=== PATIENT | female | born 1995 | race Caucasian/White ===

== ENCOUNTER → 2018-06-09 17:46 | Outpatient (CLI) | payer OTHER, SELFPAY | PROVIDERS: PCP Family Medicine; Visit Provider Physician Assistant | DX: N89.8 Other specified noninflammatory disorders of vagina (principal) | CPT/HCPCS: 87210 ==

== ENCOUNTER → 2018-09-28 09:42 | Outpatient (CLI) | payer OTHER, SELFPAY ==
[2018-09-28 11:00] LABS: Cholesterol 157 mg/dL (140-199); Glucose 97 mg/dL (70-100)
== END ==
PROVIDERS: PCP Family Medicine; Visit Provider Family Medicine
DX: Z13.9 Encounter for screening, unspecified (principal)
CPT/HCPCS: 36415; 82465; 82947

== ENCOUNTER → 2018-09-29 09:21 | Outpatient (CLI) | payer OTHER, SELFPAY ==
[2018-09-29 10:24] LABS: Cholesterol 157 mg/dL (140-199); HDL Cholesterol 65 mg/dL (40-60); LDL Cholesterol Calculated 81 mg/dL (<100); Triglycerides 57 mg/dL (35-150)
== END ==
PROVIDERS: PCP Family Medicine; Visit Provider Registered Nurse
DX: Z13.9 Encounter for screening, unspecified (principal)
CPT/HCPCS: 80061

== ENCOUNTER 2020-12-07 12:32 | Observation (INO) | payer OTHER, SELFPAY ==
[2020-12-07 12:34] VITALS: BP 123/82; PULSE 79; RESP 14; TEMP 37; O2SAT 97; BMI 20.9
--- NOTE | 2020-12-07 12:55 | DI.RAD.S_ITS ---
PROCEDURE: XR FINGER RT MIN 2V INDICATIONS: left finger infection TECHNIQUE: AP hand, 2 views of the 2nd finger(s) acquired. COMPARISON: None. FINDINGS: Bones: No fractures or dislocations. No suspicious bony lesions. Soft tissues: No suspicious soft tissue calcifications. There is prominent soft tissue edema at the 2nd digit. IMPRESSION: 2nd digit soft tissue edema. No visualized acute fracture/dislocation or osseous lesions. However, if clinical concern and/or pain persist, short interval imaging followup in 7-10 days is recommended, as occult injury cannot be definitively excluded. Dictated by: Elysia Martini M.D. on 12/07/2020 at 13:15 Approved by: Elysia Martini M.D. on 12/07/2020 at 13:17
--- NOTE | 2020-12-07 12:55 | DI.RAD.S_ITS ---
PROCEDURE: XR FOREARM RT 2V INDICATIONS: possible left wrist/forearm infection TECHNIQUE: 2 views of the forearm were acquired. COMPARISON: None. FINDINGS: Bones: No fractures or dislocations. No suspicious bony lesions. Soft tissues: No suspicious soft tissue calcifications or masses. IMPRESSION: No visualized acute fracture or dislocation. However, if clinical concern and/or pain persist, short interval imaging followup in 7-10 days is recommended, as occult injury cannot be definitively excluded. Dictated by: Elysia Martini M.D. on 12/07/2020 at 13:14 Approved by: Elysia Martini M.D. on 12/07/2020 at 13:15
--- NOTE | 2020-12-07 13:03 | ED_ITS ---
HPI - Skin/Abscess/Foreign Bdy <HUA Johnson - Last Filed: 12/07/20 18:47> General Chief complaint: Skin/Abscess/Foreign Body Stated complaint: Infection in finger-progressed quickly Time Seen by Provider: 12/07/20 12:39 Source: patient Mode of arrival: Ambulatory Limitations: no limitations History of Present Illness HPI narrative: 25-year-old right handed female presents to the ED with right hand index finger pain that started yesterday after shutting her finger in the door. She reports that it became painful and swollen, she went to urgent care yesterday and received a prescription for Keflex. She reports that it continued to be painful overnight and the redness started streaking up her wrist and then up her arm. She is now unable to move her Proximal Interphylangeal joint. She reports that she bumped her finger on the door yesterday later and started Oozing from the knuckle a little bit after it was already swollen and painful. She reports that she is otherwise healthy, denies any kidney or heart problems. She has not heard of MRSA and doesn't think that she has had it before. She denies a fever, nausea, or vomiting. She reports that her pain is about a 6/10 and she has been taking Advil for this. She is able to passively move her finger but it does cause pain. Tetanus up to date: yes Related Data Home Medications Medication Instructions Recorded Confirmed levonorgestrel 14 mcg/24 hrs (3 1 device INTRAUTERINE DIRECTED 09/16/17 12/07/20 yrs) 13.5 mg intrauterine device each (Nina) drospirenone 3 mg-ethinyl 1 tab PO QAM 12/07/20 12/07/20 estradiol 0.02 mg tablet Previous Rx's Medication Instructions Recorded cephalexin 500 mg capsule 500 mg PO QID 10 Days #40 cap 12/06/20 desonide 0.05 % topical cream 1 applic TOPICAL BID #60 g 12/06/20 Allergies Allergy/AdvReac Type Severity Reaction Status Date / Time Sulfa (Sulfonamide AdvReac Mild INCREASED Verified 12/07/20 12:37 Antibiotics) SEVERITY OF SYMPTOM W/ CONJUNCTIVITIS Review of Systems <HUA Johnson - Last Filed: 12/07/20 18:47> Review of Systems Narrative: General: denies fever, chills Head/Neck: denies headache, neck pain Eyes: denies visual changes, eye pain Cardio: denies chest pain, palpitations Respiratory: denies shortness of breath, cough GI: denies abdominal pain, nausea, vomiting, or diarrhea : denies dysuria, hematuria MSK: denies joint pain, muscle weakness, complains of pain at her dorsom PIP on her right index finger Skin: denies rash, itching Neuro: denies numbness, tingling Patient History <HUA Johnson - Last Filed: 12/07/20 18:47> Surgical History History of third molar tooth extraction (2013) Social History household members: none Smoking Status: Former smoker alcohol intake: current substance use type: does not use Smoking Status: Former smoker alcohol intake frequency: holidays/special occasions only Substance Use Type: does not use Exam <HUA Johnson - Last Filed: 12/07/20 18:47> Narrative Exam Narrative: Independently reviewed vitals signs and nursing notes. General: Awake, alert, nontoxic, no cardiorespiratory distress Head/Neck: Atraumatic, neck full range of motion Eyes: EOMI, conjunctiva normal Nose: nares patent, no rhinorrhea Mouth/Throat: moist mucus membranes, posterior pharynx normal, no oral lesions Cardio: Regular rate and rhythm, no peripheral edema Respiratory: respirations unlabored without wheezing, stridor, or rales. No retractions. GI: Abdomen soft, nontender MSK: Moves all extremities, neurovascularly intact, None of [place] signs are present, in that, the affected finger is held in moderate flextion and is unable to move. The distal tip of the fingers is edematous, as is swelling of the PIP joint on The finger is not uniformly swollen over the affected tendon. There is no tenderness over the palpated tendon. There is no pain on passive extension of the affected finger. Skin: Normal capillary refill, no rash Neuro: Normal speech and cognition, normal gait Initial Vital Signs Initial Vital Signs: Vital Signs Temperature 98.6 F 12/07/20 12:34 Pulse Rate 79 10/01/21 12:34 Respiratory Rate 14 12/07/20 12:34 Blood Pressure 123/82 12/07/20 12:34 Pulse Oximetry 97 12/07/20 12:34 <Stefany Jimenez DO - Last Filed: 12/08/20 08:14> Initial Vital Signs Initial Vital Signs: Vital Signs Temperature 98.6 F 12/07/20 12:34 Pulse Rate 79 12/07/20 12:34 Respiratory Rate 14 12/07/20 12:34 Blood Pressure 123/82 12/07/20 12:34 Pulse Oximetry 97 12/07/20 12:34 Course <HUA Johnson - Last Filed: 12/07/20 18:47> Course Course Narrative: Dr. Knutson from Ortho was consulted for possible flexor tenosynovitis, he reports that he will be by to see this patient today. Decision to Admit Date: 01/07/21 Decision to Admit time: 13:41 Additional Information: Spoke with the hospitalist regarding admission after Dr. Knutson from orthopedics saw the patient. Dr. Knutson does not feel strongly that this is flexor tenosynovitis as the patient does not complain of pain on the palmar surface of her hand, he felt that this is appropriate for IV antibiotics and admission is to medicine via the hospitalist service. If this does not improve over the next couple hours with IV antibiotics on board he reports that a MRI would be important to obtain before MRI goes home today. Patient had an IV placed and is receiving vancomycin and ceftriaxone now. She is NPO status. Dr. Roque Hospitalist accepted pt for admission at 1500. Pt reports having claustrophobia and would like something for MRI. She received 0.5mg ativan IV and is going to MRI at 1515. test is negative. Orders Ordered: Acetaminophen (Acetaminophen 325 Mg Tablet) 650 mg PO Q6HR PRN PRN Reason: Fever/Mild Pain (1-3) Last Admin: 12/07/20 20:39 Dose: 650 mg Documented by: NATASHA Hydrocodone Bitart/Acetaminophen (Hydrocodone/Acet 5/325 Tablet) 1 tab PO Q4HR PRN PRN Reason: Pain, Moderate (4-6) Last Admin: 12/07/20 18:34 Dose: 1 tab Documented by: NATASHA Ceftriaxone Sodium 2,000 mg/ (Sodium Chloride) 100 mls @ 200 mls/hr IV Q24H SONIA Vancomycin HCl (Vancomycin) 1,000 mg in 200 mls @ 200 mls/hr IV Q6H SONIA Last Admin: 12/08/20 08:08 Dose: 200 mls/hr Documented by: Infusion: 12/08/20 03:32 Dose: 0 mls/hr Documented by: Admin: 12/08/20 02:20 Dose: 200 mls/hr Documented by: Infusion: 12/07/20 22:25 Dose: 0 mls/hr Documented by: Admin: 12/07/20 20:40 Dose: 200 mls/hr Documented by: NATASHA Ibuprofen (Ibuprofen 600 Mg Tablet) 600 mg PO Q6HR PRN PRN Reason: Fever/Mild Pain (1-3) Last Admin: 12/07/20 20:38 Dose: 600 mg Documented by: NATASHA Naloxone HCl (Naloxone 0.4 Mg/Ml Vial) 0.2 mg IV Q2MIN PRN PRN Reason: Opiate Reversal Ondansetron HCl (Ondansetron 4 Mg/2 Ml Inj) 4 mg IV Q8HR PRN PRN Reason: Nausea And Vomiting Oxycodone HCl (Oxycodone Ir 10 Mg Tablet) 10 mg PO Q4HR PRN PRN Reason: Pain, Severe (7-10) Last Admin: 12/08/20 08:08 Dose: 10 mg Documented by: Admin: 12/08/20 02:20 Dose: 10 mg Documented by: Admin: 12/07/20 22:24 Dose: 10 mg Documented by: NATASHA Discontinued Medications Ceftriaxone Sodium 2,000 mg/ (Sodium Chloride) 100 mls @ 200 mls/hr IV NOW ONE Stop: 12/07/20 12:50 Last Infusion: 12/07/20 14:09 Dose: 0 mls/hr Documented by: Admin: 12/07/20 13:32 Dose: 200 mls/hr Documented by: EB Vancomycin HCl (Vancomycin) 1,250 mg in 250 mls @ 187.5 mls/hr IV NOW ONE Stop: 12/07/20 15:34 Last Infusion: 12/07/20 16:37 Dose: 187.5 mls/hr Documented by: Admin: 12/07/20 14:14 Dose: 187.5 mls/hr Documented by: EB Lorazepam (Lorazepam 2 Mg/Ml Inj) 0.5 mg IV NOW ONE Stop: 12/07/20 15:06 Last Admin: 12/07/20 15:08 Dose: 0.5 mg Documented by: EB Oxycodone HCl (Oxycodone 5 Mg/5 Ml Oral Solution) 10 mg PO Q4HR PRN PRN Reason: Pain, Moderate (4-6) Oxycodone/Acetaminophen (Oxycodone/Acetaminophen 5/325 Tablet) 1 tab PO NOW ONE Stop: 12/07/20 12:50 Last Admin: 12/07/20 13:32 Dose: 1 tab Documented by: EB Vancomycin HCl (Vancomycin Per Pharmacy) 1 request MISC NOW ONE Stop: 12/07/20 12:57 Last Admin: 12/07/20 13:33 Dose: Not Given Documented by: EB Vancomycin HCl (Vancomycin Trough) 1 request MISC 0730 ONE Stop: 12/08/20 07:31 Vital Signs Vital signs: Vital Signs - 8 hr 12/07/20 12:34 12/07/20 13:35 12/07/20 13:36 Temperature 98.6 F Pulse Rate 79 61 64 Respiratory Rate 14 17 Blood Pressure 123/82 124/91 H Pulse Oximetry 97 100 100 12/07/20 14:00 12/07/20 14:30 Temperature Pulse Rate 60 63 Respiratory Rate 18 Blood Pressure 115/74 115/74 Pulse Oximetry 100 100 <Stefany Jimenez, - Last Filed: 12/08/20 08:14> Orders Ordered: Acetaminophen (Acetaminophen 325 Mg Tablet) 650 mg PO Q6HR PRN PRN Reason: Fever/Mild Pain (1-3) Last Admin: 12/07/20 20:39 Dose: 650 mg Documented by: NATASHA Hydrocodone Bitart/Acetaminophen (Hydrocodone/Acet 5/325 Tablet) 1 tab PO Q4HR PRN PRN Reason: Pain, Moderate (4-6) Last Admin: 12/07/20 18:34 Dose: 1 tab Documented by: NATASHA Ceftriaxone Sodium 2,000 mg/ (Sodium Chloride) 100 mls @ 200 mls/hr IV Q24H [facility] Vancomycin HCl (Vancomycin) 1,000 mg in 200 mls @ 200 mls/hr IV Q6H SONIA Last Admin: 12/08/20 08:08 Dose: 200 mls/hr Documented by: Infusion: 12/08/20 03:32 Dose: 0 mls/hr Documented by: Admin: 12/08/20 02:20 Dose: 200 mls/hr Documented by: Infusion: 12/07/20 22:25 Dose: 0 mls/hr Documented by: Admin: 12/07/20 20:40 Dose: 200 mls/hr Documented by: NATASHA Ibuprofen (Ibuprofen 600 Mg Tablet) 600 mg PO Q6HR PRN PRN Reason: Fever/Mild Pain (1-3) Last Admin: 12/07/20 20:38 Dose: 600 mg Documented by: NATASHA Naloxone HCl (Naloxone 0.4 Mg/Ml Vial) 0.2 mg IV Q2MIN PRN PRN Reason: Opiate Reversal Ondansetron HCl (Ondansetron 4 Mg/2 Ml Inj) 4 mg IV Q8HR PRN PRN Reason: Nausea And Vomiting Oxycodone HCl (Oxycodone Ir 10 Mg Tablet) 10 mg PO Q4HR PRN PRN Reason: Pain, Severe (7-10) Last Admin: 12/08/20 08:08 Dose: 10 mg Documented by: Admin: 12/08/20 02:20 Dose: 10 mg Documented by: Admin: 12/07/20 22:24 Dose: 10 mg Documented by: NATASHA Discontinued Medications Ceftriaxone Sodium 2,000 mg/ (Sodium Chloride) 100 mls @ 200 mls/hr IV NOW ONE Stop: 12/07/20 12:50 Last Infusion: 12/07/20 14:09 Dose: 0 mls/hr Documented by: Admin: 12/07/20 13:32 Dose: 200 mls/hr Documented by: EB Vancomycin HCl (Vancomycin) 1,250 mg in 250 mls @ 187.5 mls/hr IV NOW ONE Stop: 12/07/20 15:34 Last Infusion: 12/07/20 16:37 Dose: 187.5 mls/hr Documented by: Admin: 12/07/20 14:14 Dose: 187.5 mls/hr Documented by: EB Lorazepam (Lorazepam 2 Mg/Ml Inj) 0.5 mg IV NOW ONE Stop: 12/07/20 15:06 Last Admin: 12/07/20 15:08 Dose: 0.5 mg Documented by: EB Oxycodone HCl (Oxycodone 5 Mg/5 Ml Oral Solution) 10 mg PO Q4HR PRN PRN Reason: Pain, Moderate (4-6) Oxycodone/Acetaminophen (Oxycodone/Acetaminophen 5/325 Tablet) 1 tab PO NOW ONE Stop: 12/07/20 12:50 Last Admin: 12/07/20 13:32 Dose: 1 tab Documented by: EB Vancomycin HCl (Vancomycin Per Pharmacy) 1 request MISC NOW ONE Stop: 12/07/20 12:57 Last Admin: 12/07/20 13:33 Dose: Not Given Documented by: EB Vancomycin HCl (Vancomycin Trough) 1 request MISC 0730 ONE Stop: 12/08/20 07:31 Vital Signs Vital signs: Vital Signs - 8 hr 12/07/20 12:34 12/07/20 13:35 12/07/20 13:36 Temperature 98.6 F Pulse Rate 79 61 64 Respiratory Rate 14 17 Blood Pressure 123/82 124/91 H Pulse Oximetry 97 100 100 12/07/20 14:00 12/07/20 14:30 Temperature Pulse Rate 60 63 Respiratory Rate 18 Blood Pressure 115/74 115/74 Pulse Oximetry 100 100 MDM - Skin/Abscess/Foreign Bdy <Lelo Mike [facility] - Last Filed: 12/07/20 18:47> Lab Data Result diagrams: 12/08/20 06:02 12/07/20 13:15 Labs: Lab Results 12/07/20 12/07/20 12/07/20 Range/Units 13:15 13:15 13:17 WBC 9.8 (4.5-11.0) X10^3/uL RBC 4.69 (4.0-5.2) X10^6/uL Hgb 13.0 (12.0-16.0) g/dL Hct 39.2 (36-46) % MCV 83.5 (80-100) fL MCH 27.7 (26-34) PG MCHC 33.1 (30-36) % RDW 14.7 (11.6-14.8) % Plt Count 288 (150-400) X10^3/uL Neut % (Auto) 66.8 (50-75) % Lymph % (Auto) 23.3 L (25-40) % [place] % (Auto) 8.5 (3-14) % Eos % (Auto) 0.9 L (2-4) % Baso % (Auto) 0.5 (0-2) % Neut # (Auto) 6600 (0071-7869) /uL Lymph # (Auto) 2300 (4600-3459) /uL [place] # (Auto) 800 (0-900) /uL Eos # (Auto) 100 (0-450) /uL Baso # (Auto) 0 (0-100) /uL ESR 7 (0-20) MM/HR Sodium 140 (137-145) mmol/L Potassium 3.5 (3.4-5.1) mmol/L Chloride 105 (98-107) mmol/L Carbon Dioxide 28 (22-32) mmol/L BUN 7 (7-17) mg/dL Creatinine 0.63 (0.52-1.04) mg/dL Estimated GFR > 60.0 (>60) mL/min BUN/Creatinine Ratio 11.1 (6-22) Glucose 87 (70-100) mg/dL Calcium 9.4 (8.4-10.2) mg/dL Total Bilirubin 0.3 (0.2-1.3) mg/dL AST 23 (14-36) IU/L ALT 21 (<35) IU/L Alkaline Phosphatase 61 (38-126) U/L Total Protein 7.2 (6.3-8.2) g/dL Albumin 4.5 (3.5-5.0) g/dL Globulin 2.7 (1.7-4.1) g/dL Albumin/Globulin Ratio 1.7 (1.0-2.8) HCG, Quant < 2.4 mIU/mL SARS-CoV-2 (PCR) (Negative) 12/07/20 Range/Units 13:44 WBC (4.5-11.0) X10^3/uL RBC (4.0-5.2) X10^6/uL Hgb (12.0-16.0) g/dL Hct (36-46) % MCV (80-100) fL MCH (26-34) PG MCHC (30-36) % RDW (11.6-14.8) % Plt Count (150-400) X10^3/uL Neut % (Auto) (50-75) % Lymph % (Auto) (25-40) % [place] % (Auto) (3-14) % Eos % (Auto) (2-4) % Baso % (Auto) (0-2) % Neut # (Auto) (9274-4491) /uL Lymph # (Auto) (5902-1183) /uL [place] # (Auto) (0-900) /uL Eos # (Auto) (0-450) /uL Baso # (Auto) (0-100) /uL ESR (0-20) MM/HR Sodium (137-145) mmol/L Potassium (3.4-5.1) mmol/L Chloride (98-107) mmol/L Carbon Dioxide (22-32) mmol/L BUN (7-17) mg/dL Creatinine (0.52-1.04) mg/dL Estimated GFR (>60) mL/min BUN/Creatinine Ratio (6-22) Glucose (70-100) mg/dL Calcium (8.4-10.2) mg/dL Total Bilirubin (0.2-1.3) mg/dL AST (14-36) IU/L ALT (<35) IU/L Alkaline Phosphatase (38-126) U/L Total Protein (6.3-8.2) g/dL Albumin (3.5-5.0) g/dL Globulin (1.7-4.1) g/dL Albumin/Globulin Ratio (1.0-2.8) HCG, Quant mIU/mL SARS-CoV-2 (PCR) Negative (Negative) Imaging Data Extremity x-ray #1: Radiologist's Impression: PROCEDURE:? XR FINGER RT MIN 2V ? INDICATIONS:? left finger infection ? TECHNIQUE:? AP hand, 2 views of the 2nd finger(s) acquired.? ? COMPARISON:? None. ? FINDINGS:? ? Bones:? No fractures or dislocations.? No suspicious bony lesions.? ? Soft tissues:? No suspicious soft tissue calcifications.? There is prominent soft tissue edema at the 2nd digit. ? IMPRESSION:? 2nd digit soft tissue edema. No visualized acute fracture/dis location or osseous lesions. However, if clinical concern and/or pain persist, short interval imaging followup in 7-10 days is recommended, as occult injury cannot be definitively excluded. ? ? Dictated by: Elysia Martini M.D. on 12/07/2020 at 13:15 ? ? Approved by: Elysia Martini M.D. on 12/07/2020 at 13:17 ? Extremity x-ray #2: Radiologist's Impression: PROCEDURE:? XR FOREARM RT 2V ? INDICATIONS:? possible left wrist/forearm infection ? TECHNIQUE:? 2 views of the forearm were acquired.? ? COMPARISON:? None. ? FINDINGS:? ? Bones:? No fractures or dislocations.? No suspicious bony lesions.? ? Soft tissues:? No suspicious soft tissue calcifications or masses.? ? ? IMPRESSION:? No visualized acute fracture or dislocation. However, if clinical concern and/or pain persist, short interval imaging followup in 7-10 days is recommend ed, as occult injury cannot be definitively excluded. ? ? ? Dictated by: Elysia Martini M.D. on 12/07/2020 at 13:14 ? ? Approved by: Elysia Martini M.D. on 12/07/2020 at 13:15 ? MRI Hand: Radiologist's Impression: PROCEDURE:? MR HAND RT WO/W CON ? INDICATIONS:? rt index finger cellulitis c/f abcess, necrotizing fasc ? TECHNIQUE:? Noncontrast coronal T1 spin echo and STIR, sagittal T1 spin echo with fat saturation and STIR, axial T1 spin echo and T2 fast spin echo with fat saturation.? After the administration of contrast, axial/sagittal/coronal T1 spin echo with fat saturation through the right hand and 2nd finger.? ? COMPARISON:? None. ? FINDINGS:? Image quality:? Excellent.? ? Bones:? The visualized bone marrow demonstrates normal signal on all sequences.? The overlying cortex appears intact.? No abnormal intraosseous enhancement.? ? Soft tissues:? Diffuse soft tissue swelling and edema surrounding 2nd digit particularly over volar aspect of 2nd distal phalanx is seen and show heterogeneous contrast enhancement.? No discrete drainable fluid collection is noted.? No soft tissue masses are visualized.? The scanned muscles demonstrate normal overall bulk and internal signal.? Extensor and flexor tendons are grossly intact.? ? IMPRESSION:? 1. Extensive soft tissue edema and swelling surrounding 2nd digit consistent with extensive cellulitis.? No discrete drainable abscess collection.? No soft tissue mass or fluid collection. 2. No evidence of osteomyelitis.? No fracture or dislocation. 3. Extensor and flexor tendons of 2nd digit are grossly intact.? ? ? Dictated by: Iain Brooks M.D. on 12/07/2020 at 16:11 ? ? Approved by: Iain Brooks M.D. on 12/07/2020 at 16:18 ? MDM Narrative Medical decision making narrative: 25-year-old right handed female presents to the ED with right hand index finger pain that started yesterday after shutting her finger in the door. She was seen at urgent care yesterday and prescribed Keflex for finger cellulitis. The redness progressed up her finger into her wrist towards her elbow. Her finger and forearm x-rays were negative for bony abnormalities, there was edema surrounding her 2nd finger on her left hand at the PIP joint without any air. Patient has sensitivity to light touch around her proximal PIP of 2nd digit, it is erythematous, with lymphanginitic spread visible, no fluid pockets or fluctuance, no obvious abscess. Low concern for osteomyelitis. Patient does not have any immune compromise, pain out of proportion, for rapid progression similar to necrotizing fasciitis. None of [place] signs are present, in that, the affected finger is held in slight flextion. The finger is not uniformly swollen over the affected tendon. There is no tenderness over the palpated tendon. Her pain is not on the palmar surface, it is more on the dorsum of her finger. There is pain on passive extension of the affected finger. Ceftriaxone and vancomycin IV and a consult to Ortho was made with concern for flexor tenosynovitis versus cellulitis versus compartment syndrome. A right hand MRI was ordered and is pending at this time. Hospitalist Dr. roque was consulted for admission to the hospital. Initial ddx to include but not limited to flexor tenosynovitis, compartment syndrome distal of index finger on right hand, and necrotizing faciitis. Dispo: Admission to hospitalist service with orthopedic consult for possible surgery Pending her MRI and course on IV antibiotics. She was admitted before her MRI results were available, the radiology read had no evidence of osteomyelitis, no fracture dislocation extensor and flexor tendons of 2nd digit are grossly intact, and she did have extensive soft tissue edema and swelling surrounding 2nd digit consisted with extensive cellulitis without drainable abscess collection, no soft tissue mass or fluid collection. <Stefany Jimenez, DO - Last Filed: 12/08/20 08:14> Lab Data Labs: Lab Results 12/07/20 12/07/20 12/07/20 Range/Units 13:15 13:15 13:17 WBC 9.8 (4.5-11.0) X10^3/uL RBC 4.69 (4.0-5.2) X10^6/uL Hgb 13.0 (12.0-16.0) g/dL Hct 39.2 (36-46) % MCV 83.5 (80-100) fL MCH 27.7 (26-34) PG MCHC 33.1 (30-36) % RDW 14.7 (11.6-14.8) % Plt Count 288 (150-400) X10^3/uL Neut % (Auto) 66.8 (50-75) % Lymph % (Auto) 23.3 L (25-40) % [place] % (Auto) 8.5 (3-14) % Eos % (Auto) 0.9 L (2-4) % Baso % (Auto) 0.5 (0-2) % Neut # (Auto) 6600 (7132-2461) /uL Lymph # (Auto) 2300 (2206-2385) /uL [place] # (Auto) 800 (0-900) /uL Eos # (Auto) 100 (0-450) /uL Baso # (Auto) 0 (0-100) /uL ESR 7 (0-20) MM/HR Sodium 140 (137-145) mmol/L Potassium 3.5 (3.4-5.1) mmol/L Chloride 105 (98-107) mmol/L Carbon Dioxide 28 (22-32) mmol/L BUN 7 (7-17) mg/dL Creatinine 0.63 (0.52-1.04) mg/dL Estimated GFR > 60.0 (>60) mL/min BUN/Creatinine Ratio 11.1 (6-22) Glucose 87 (70-100) mg/dL Calcium 9.4 (8.4-10.2) mg/dL Total Bilirubin 0.3 (0.2-1.3) mg/dL AST 23 (14-36) IU/L ALT 21 (<35) IU/L Alkaline Phosphatase 61 (38-126) U/L Total Protein 7.2 (6.3-8.2) g/dL Albumin 4.5 (3.5-5.0) g/dL Globulin 2.7 (1.7-4.1) g/dL Albumin/Globulin Ratio 1.7 (1.0-2.8) HCG, Quant < 2.4 mIU/mL SARS-CoV-2 (PCR) (Negative) 12/07/20 Range/Units 13:44 WBC (4.5-11.0) X10^3/uL RBC (4.0-5.2) X10^6/uL Hgb (12.0-16.0) g/dL Hct (36-46) % MCV (80-100) fL MCH (26-34) PG MCHC (30-36) % RDW (11.6-14.8) % Plt Count (150-400) X10^3/uL Neut % (Auto) (50-75) % Lymph % (Auto) (25-40) % [place] % (Auto) (3-14) % Eos % (Auto) (2-4) % Baso % (Auto) (0-2) % Neut # (Auto) (3783-2262) /uL Lymph # (Auto) (0867-2882) /uL [place] # (Auto) (0-900) /uL Eos # (Auto) (0-450) /uL Baso # (Auto) (0-100) /uL ESR (0-20) MM/HR Sodium (137-145) mmol/L Potassium (3.4-5.1) mmol/L Chloride (98-107) mmol/L Carbon Dioxide (22-32) mmol/L BUN (7-17) mg/dL Creatinine (0.52-1.04) mg/dL Estimated GFR (>60) mL/min BUN/Creatinine Ratio (6-22) Glucose (70-100) mg/dL Calcium (8.4-10.2) mg/dL Total Bilirubin (0.2-1.3) mg/dL AST (14-36) IU/L ALT (<35) IU/L Alkaline Phosphatase (38-126) U/L Total Protein (6.3-8.2) g/dL Albumin (3.5-5.0) g/dL Globulin (1.7-4.1) g/dL Albumin/Globulin Ratio (1.0-2.8) HCG, Quant mIU/mL SARS-CoV-2 (PCR) Negative (Negative) Discharge Plan Departure Patient Disposition: Admitted as Observation Clinical Impression: Cellulitis of finger of right hand Admit Date/Time: 12/07/20 15:06 Admit Provider: Samantha Roque <Stefany Jimenez DO - Last Filed: 12/08/20 08:14> Cosign ED Attending Kyrieature Attestation: I was immediately available in the department for consultation. Documentation has been reviewed. I agree with assessment and plan.
[2020-12-07 13:25] LABS: Add Manual Diff / Slide Review NO; Basophils Absolute Auto 0 /uL (0-100); Basophils Percent Auto 0.5 % (0-2); Eosinophils Absolute Auto 100 /uL (0-450); Eosinophils Percent Auto 0.9 % (2-4); Hematocrit 39.2 % (36-46); Lymphocytes Absolute Auto 2300 /uL (1100-4500); Lymphocytes Percent Auto 23.3 % (25-40); Mean Corpuscular HGB Conc 33.1 % (30-36); Mean Corpuscular Hemoglobin 27.7 PG (26-34); Mean Corpuscular Volume 83.5 fL (80-100); Monocytes Absolute Auto 800 /uL (0-900); Monocytes Percent Auto 8.5 % (3-14); Neutrophils Absolute Auto 6600 /uL (1500-7000); Neutrophils Percent Auto 66.8 % (50-75); Platelet Count 288 X10^3/uL (150-400); Red Blood Cell Count 4.69 X10^6/uL (4.0-5.2); Red Cell Distribution Width 14.7 % (11.6-14.8); White Blood Cell Count 9.8 X10^3/uL (4.5-11.0)
[2020-12-07] MEDS: OXYCODONE/ACETAMINOPHEN 5/325 TABLET 1 TAB PO (13:32)
[2020-12-07] MEDS: cefTRIAXone 2,000 MG in SODIUM CHLORIDE 0.9% 100 ML 200 ML IV (13:32)
[2020-12-07 13:35] VITALS: PULSE 61; O2SAT 100
[2020-12-07 13:36] VITALS: BP 124/91; PULSE 64; RESP 17; O2SAT 100
[2020-12-07 13:43] LABS: Alanine Aminotransferase 21 IU/L (<35); Albumin 4.5 g/dL (3.5-5.0); Albumin Globulin Ratio 1.7 (1.0-2.8); Alkaline Phosphatase 61 U/L (38-126); Aspartate Aminotransferase 23 IU/L (14-36); BUN Creatinine Ratio 11.1 (6-22); Bilirubin Total 0.3 mg/dL (0.2-1.3); Blood Urea Nitrogen 7 mg/dL (7-17); Calcium 9.4 mg/dL (8.4-10.2); Carbon Dioxide 28 mmol/L (22-32); Chloride 105 mmol/L (98-107); Estimated Glomerular Filt Rate > 60.0 mL/min (>60); Globulin 2.7 g/dL (1.7-4.1); Glucose 87 mg/dL (70-100); HEMOLYSIS < 15 (0-50); Potassium 3.5 mmol/L (3.4-5.1); Sodium 140 mmol/L (137-145); Total Protein 7.2 g/dL (6.3-8.2)
[2020-12-07 13:53] LABS: Erythrocyte Sedimentation Rate 7 MM/HR (0-20)
[2020-12-07 14:00] VITALS: BP 115/74; PULSE 60; RESP 18; O2SAT 100
--- NOTE | 2020-12-07 14:09 | DI.MRI.S_ITS ---
PROCEDURE: MR HAND RT WO/W CON INDICATIONS: rt index finger cellulitis c/f abcess, necrotizing fasc TECHNIQUE: Noncontrast coronal T1 spin echo and STIR, sagittal T1 spin echo with fat saturation and STIR, axial T1 spin echo and T2 fast spin echo with fat saturation. After the administration of contrast, axial/sagittal/coronal T1 spin echo with fat saturation through the right hand and 2nd finger. COMPARISON: None. FINDINGS: Image quality: Excellent. Bones: The visualized bone marrow demonstrates normal signal on all sequences. The overlying cortex appears intact. No abnormal intraosseous enhancement. Soft tissues: Diffuse soft tissue swelling and edema surrounding 2nd digit particularly over volar aspect of 2nd distal phalanx is seen and show heterogeneous contrast enhancement. No discrete drainable fluid collection is noted. No soft tissue masses are visualized. The scanned muscles demonstrate normal overall bulk and internal signal. Extensor and flexor tendons are grossly intact. IMPRESSION: 1. Extensive soft tissue edema and swelling surrounding 2nd digit consistent with extensive cellulitis. No discrete drainable abscess collection. No soft tissue mass or fluid collection. 2. No evidence of osteomyelitis. No fracture or dislocation. 3. Extensor and flexor tendons of 2nd digit are grossly intact. Dictated by: Iain Brooks M.D. on 12/07/2020 at 16:11 Approved by: Iain Brooks M.D. on 12/07/2020 at 16:18
[2020-12-07] MEDS: VANCOMYCIN 1,250 MG/250 ML PIGGYBACK 187.5 MG IV (14:14)
[2020-12-07 14:30] VITALS: BP 115/74; PULSE 63; O2SAT 100
[2020-12-07 14:47] LABS: HCG Quantitative /Beta subunit < 2.4 mIU/mL
[2020-12-07] MEDS: LORazepam 2 MG/ML INJ 0.5 MG IV (15:08)
[2020-12-07 15:43] LABS: COVID19 - ADMIT (NP swab/PCR) Negative (Negative)
--- NOTE | 2020-12-07 16:50 | PM.CN ---
History of Present Illness Consult details Chief complaint: Infection in finger-progressed quickly Narrative: Ms. Sue is a 25 yo F with acute onset finger swelling and pain since yesterday. Her finger is becoming more painful with range of motion and she presented to ED for evaluation. Ortho service was consulted. I examined and evaluated the patient in the ED. Meds Home Medications and Allergies Home Medications Medication Instructions Recorded Confirmed Type levonorgestrel 14 mcg/24 hrs (3 INTRAUTERINE each 09/16/17 12/06/20 History yrs) 13.5 mg intrauterine device (Nina) cephalexin 500 mg capsule 500 mg PO QID 10 Days #40 cap 12/06/20 12/07/20 Rx desonide 0.05 % topical cream 1 applic TOPICAL BID #60 g 12/06/20 12/07/20 Rx Allergies Allergy/AdvReac Type Severity Reaction Status Date / Time Sulfa (Sulfonamide AdvReac Mild INCREASED Verified 12/07/20 12:37 Antibiotics) SEVERITY OF SYMPTOM W/ CONJUNCTIVITIS Exam Vital Signs (past 8 hours): - 12/07/20 12:34 12/07/20 13:35 12/07/20 13:36 Temperature 98.6 F Pulse Rate 79 61 64 Respiratory Rate 14 17 Blood Pressure 123/82 124/91 H Pulse Oximetry 97 100 100 12/07/20 14:00 12/07/20 14:30 Temperature Pulse Rate 60 63 Respiratory Rate 18 Blood Pressure 115/74 115/74 Pulse Oximetry 100 100 Oxygen Delivery Method Room Air Extrem Other: Right index finger with small 2-3 mm ulcer/abrasion on the dorsum milddle phalanx. Small amount of serous fluid in blister surrounding the ulcer/abrasion with minimum amount of serous discharge from the abrasion. There is no palmar tenderness on examination. There is no joint tenderness with range motion in her hand or wrist. The hand/fingers are well perfused and neuro intact on exam. Objective Labs Result Diagrams: 12/07/20 13:15 12/07/20 13:15 Labs: Laboratory Results - last 24 hr 12/07/20 12/07/20 12/07/20 13:15 13:15 13:17 WBC 9.8 RBC 4.69 Hgb 13.0 Hct 39.2 MCV 83.5 MCH 27.7 MCHC 33.1 RDW 14.7 Plt Count 288 Neut % (Auto) 66.8 Lymph % (Auto) 23.3 L [place] % (Auto) 8.5 Eos % (Auto) 0.9 L Baso % (Auto) 0.5 Neut # (Auto) 6600 Lymph # (Auto) 2300 [place] # (Auto) 800 Eos # (Auto) 100 Baso # (Auto) 0 ESR 7 Sodium 140 Potassium 3.5 Chloride 105 Carbon Dioxide 28 BUN 7 Creatinine 0.63 Estimated GFR > 60.0 BUN/Creatinine Ratio 11.1 Glucose 87 Calcium 9.4 Total Bilirubin 0.3 AST 23 ALT 21 Alkaline Phosphatase 61 Total Protein 7.2 Albumin 4.5 Globulin 2.7 Albumin/Globulin Ratio 1.7 HCG, Quant < 2.4 SARS-CoV-2 (PCR) 12/07/20 13:44 WBC RBC Hgb Hct MCV MCH MCHC RDW Plt Count Neut % (Auto) Lymph % (Auto) [place] % (Auto) Eos % (Auto) Baso % (Auto) Neut # (Auto) Lymph # (Auto) [place] # (Auto) Eos # (Auto) Baso # (Auto) ESR Sodium Potassium Chloride Carbon Dioxide BUN Creatinine Estimated GFR BUN/Creatinine Ratio Glucose Calcium Total Bilirubin AST ALT Alkaline Phosphatase Total Protein Albumin Globulin Albumin/Globulin Ratio HCG, Quant SARS-CoV-2 (PCR) Negative [facility] Surgical History History of third molar tooth extraction (2013) Tobacco & Substance Use Smoking Status: Former smoker alcohol intake: current substance use type: does not use Assessment & Plan Assessment & Plan narrative: Right index finger cellulitis. MRI shows no fluid collection in soft tissue , tendon sheath or joints. No surgical drainable abscess. Continue IV antibiotics for treatment of cellulitis and monitor finger cellulitis response to antibiotics. Time Spent With Patient Critical Care time: I spent a total of [] minutes of critical care time on this patient's care today; this time is exclusive of procedural time.
[2020-12-07 17:15] VITALS: BP 118/85; PULSE 69; RESP 18; TEMP 36.4; O2SAT 100
[2020-12-07 18:13] VITALS: BMI 20.9
--- NOTE | 2020-12-07 18:18 | P.HP_ITS ---
History of Present Illness History of Present Illness Date Patient Seen: 12/07/20 Time Patient Seen: 18:18 Chief complaint: Infection in finger-progressed quickly Narrative: The patient is a 25-year-old right-handed female who presented to the emergency department with complaints of pain in her right index finger. She reports her symptoms began on Thursday night 2 nights prior to admission. Initially she thought it was related to slamming her finger in the door. However she notes initially a became somewhat tender. Then she woke yesterday with the finger being swollen and painful and inability to move her forefinger. She was seen in urgent care. They started her on Keflex. She took 3 tablets of the prescription but noted her finger became increasingly painful red and tender. She has been unable to move her finger. She has noted some oozing from the knuckle and presented to the emergency room for evaluation. She has had no symptoms of fever chills nausea vomiting or shortness of breath. Her main complaint is pain of the right finger. She was evaluated by Dr. Brooks, orthopedic surgeon in the emergency department. In MRI was done of the finger. This shows no drainable collection of fluid or abscess. It is felt that this is a finger cellulitis without tenosynovitis or abscess involved. The patient will be admitted to the hospital at this time for treatment with antibiotics for finger cellulitis. Patient History Surgical History History of third molar tooth extraction (2013) Family & Social History Social History: Patient is not aware of any family history by her appearance of any medical problem Safety & Behavioral: Feels Safe in Current Yes Environment Been Physically Hurt or No Threatened By a Person Tobacco & Substance use: Smoking Status Former smoker alcohol intake current alcohol intake frequency holiday/special occasion Substance Use Type does not use Meds Home Medications and Allergies Home Medications Medication Instructions Recorded Confirmed Type levonorgestrel 14 mcg/24 hrs (3 1 device INTRAUTERINE DIRECTED 09/16/17 12/07/20 History yrs) 13.5 mg intrauterine device each (Nina) cephalexin 500 mg capsule 500 mg PO QID 10 Days #40 cap 12/06/20 12/07/20 Rx desonide 0.05 % topical cream 1 applic TOPICAL BID #60 g 12/06/20 12/07/20 Rx drospirenone 3 mg-ethinyl 1 tab PO QAM 12/07/20 12/07/20 History estradiol 0.02 mg tablet Allergies Allergy/AdvReac Type Severity Reaction Status Date / Time Sulfa (Sulfonamide AdvReac Mild INCREASED Verified 12/07/20 12:37 Antibiotics) SEVERITY OF SYMPTOM W/ CONJUNCTIVITIS Review of Systems Review of Systems Narrative: Ten point review of systems is negative Exam Vital Signs (past 8 hours): - 12/07/20 12:34 12/07/20 13:35 12/07/20 13:36 Temperature 98.6 F Pulse Rate 79 61 64 Respiratory Rate 14 17 Blood Pressure 123/82 124/91 H Pulse Oximetry 97 100 100 12/07/20 14:00 12/07/20 14:30 12/07/20 17:15 Temperature 97.5 F L Pulse Rate 60 63 69 Respiratory Rate 18 18 Blood Pressure 115/74 115/74 118/85 Pulse Oximetry 100 100 100 Oxygen Delivery Method Room Air Narrative Exam Narrative: Pleasant female lying in bed somewhat uncomfortable [facility] Other: Normocephalic atraumatic, extraocular muscles are intact, oropharynx is clear, neck is supple without adenopathy Resp Other: Lungs: Clear to auscultation Cardio Other: Cardiac exam cardiac exam regular rate and rhythm normal S1-S2 GI Other: Scaphoid soft nontender nondistended Skin Other: Right index finger swollen, blister with some a drainage of clear fluid, mild erythema, tenderness to palpation. The proximal interphalangeal joint is swollen and tender to palpation Neuro Other: Neuro exam nonfocal Extrem Other: Extremity no edema Objective Labs Result Diagrams: 12/07/20 13:15 12/07/20 13:15 Labs: Laboratory Results - last 24 hr 12/07/20 12/07/20 12/07/20 13:15 13:15 13:17 WBC 9.8 RBC 4.69 Hgb 13.0 Hct 39.2 MCV 83.5 MCH 27.7 MCHC 33.1 RDW 14.7 Plt Count 288 Neut % (Auto) 66.8 Lymph % (Auto) 23.3 L [place] % (Auto) 8.5 Eos % (Auto) 0.9 L Baso % (Auto) 0.5 Neut # (Auto) 6600 Lymph # (Auto) 2300 [place] # (Auto) 800 Eos # (Auto) 100 Baso # (Auto) 0 ESR 7 Sodium 140 Potassium 3.5 Chloride 105 Carbon Dioxide 28 BUN 7 Creatinine 0.63 Estimated GFR > 60.0 BUN/Creatinine Ratio 11.1 Glucose 87 Calcium 9.4 Total Bilirubin 0.3 AST 23 ALT 21 Alkaline Phosphatase 61 Total Protein 7.2 Albumin 4.5 Globulin 2.7 Albumin/Globulin Ratio 1.7 HCG, Quant < 2.4 SARS-CoV-2 (PCR) 12/07/20 13:44 WBC RBC Hgb Hct MCV MCH MCHC RDW Plt Count Neut % (Auto) Lymph % (Auto) [place] % (Auto) Eos % (Auto) Baso % (Auto) Neut # (Auto) Lymph # (Auto) [place] # (Auto) Eos # (Auto) Baso # (Auto) ESR Sodium Potassium Chloride Carbon Dioxide BUN Creatinine Estimated GFR BUN/Creatinine Ratio Glucose Calcium Total Bilirubin AST ALT Alkaline Phosphatase Total Protein Albumin Globulin Albumin/Globulin Ratio HCG, Quant SARS-CoV-2 (PCR) Negative Assessment & Plan Assessment & Plan narrative: 25-year-old female admitted to the hospital with right index finger cellulitis involving the proximal interphalangeal joint -patient will continue on IV vancomycin and IV ceftriaxone -WBC 9.8 -MRI findings Extensive soft tissue edema and swelling surrounding 2nd digit consistent with extensive cellulitis.? No discrete drainable abscess collection.? No soft tissue mass or fluid collection. 2. No evidence of osteomyelitis.? No fracture or dislocation. 3. Extensor and flexor tendons of 2nd digit are grossly intact.? -Vicodin for pain control -will repeat CBC in the morning Patient reports she is a full code will note that her record accordingly She reports her mother is her surrogate decision maker She is admitted as an inpatient, as she will need IV antibiotics most likely for more than 48 hours Time Spent With Patient Critical Care time: I spent a total of [] minutes of critical care time on this patient's care today; this time is exclusive of procedural time.
[2020-12-07] MEDS: HYDROCODONE/ACET 5/325 TABLET 1 TAB PO (18:34)
[2020-12-07] MEDS: IBUPROFEN 600 MG TABLET PO (20:38)
[2020-12-07] MEDS: ACETAMINOPHEN 325 MG TABLET 650 MG PO (20:39)
[2020-12-07] MEDS: VANCOMYCIN 1,000 MG/200 ML PIGGYBACK 200 MG IV (20:40)
[2020-12-07] MEDS: OXYCODONE IR 10 MG TABLET PO (22:24)
[2020-12-08 00:59] VITALS: BP 87/49; PULSE 58; RESP 18; TEMP 36.3; O2SAT 99
[2020-12-08] MEDS: VANCOMYCIN 1,000 MG/200 ML PIGGYBACK 200 MG IV ×3 (02:20→14:08)
[2020-12-08] MEDS: OXYCODONE IR 10 MG TABLET PO ×3 (02:20→14:39)
[2020-12-08 02:25] VITALS: BP 102/59; PULSE 67
[2020-12-08 06:45] LABS: Add Manual Diff / Slide Review NO; Basophils Absolute Auto 100 /uL (0-100); Basophils Percent Auto 0.7 % (0-2); Eosinophils Absolute Auto 200 /uL (0-450); Eosinophils Percent Auto 3.1 % (2-4); Hematocrit 37.3 % (36-46); Hemoglobin 12.2 g/dL (12.0-16.0); Lymphocytes Absolute Auto 3100 /uL (1100-4500); Lymphocytes Percent Auto 39.9 % (25-40); Mean Corpuscular HGB Conc 32.7 % (30-36); Mean Corpuscular Hemoglobin 27.5 PG (26-34); Monocytes Absolute Auto 600 /uL (0-900); Monocytes Percent Auto 8.4 % (3-14); Neutrophils Absolute Auto 3700 /uL (1500-7000); Neutrophils Percent Auto 47.9 % (50-75); Platelet Count 274 X10^3/uL (150-400); Red Blood Cell Count 4.44 X10^6/uL (4.0-5.2); White Blood Cell Count 7.7 X10^3/uL (4.5-11.0)
[2020-12-08 07:38] LABS: Procalcitonin 0.06 ng/mL (<0.5)
[2020-12-08 08:04] LABS: Vancomycin Trough 15.5 ug/mL (10-20)
[2020-12-08 09:32] VITALS: BP 105/49; PULSE 58; RESP 16; TEMP 36.4; O2SAT 100
--- NOTE | 2020-12-08 10:52 | CM.DANOTE ---
DCP: Case received, EMR reviewed and met with patient. Her partner was also in the room. Introduced self and role. Obtained some information from patient in order to complete her DCP assessment. Assessment was completed with information currently available. Patient is a 25 year old female who admitted yesterday afternoon to the care of the hospitalist team. PCP: Dr. Redding. Payer: confirmed: [facility]. Patient came to the hospital via private vehicle secondary to having increased swelling and pain to her right index finger. She was diagnosed with right index finger cellulitis. Patient indicated, she had accidentally slammed her finger in the door. She had received a consult from orthopedics, and surgery is not indicated. She is here to complete her IV ABO. Met with patient in her room. Her partner was in the room with her. She resides in [place], her mother lives here in [place]. She indicated, she will be staying with her for a while when she gets discharged. She is independent, works at [employer] here in [place]. P: DCP to continue to follow. Patient should be able to go home when she is stable, and able to go on p.o. ABO. Karin Johnson RN/Rn Gyn Discharge Planning/Care Management CM Discharge Assessment Start: 12/08/20 10:51 Freq: Status: Active Protocol: Document 12/08/20 10:51 (Rec: 12/08/20 10:52 [id number]) Discharge Planning Assessment Assigned [employer] Karin Johnson RN/Rn Gyn Advance Directives? No History Provided By Patient,Medical Record Prior Living Arrangements Apartment/Condo Household Members none Type of transporation used prior to Drives own vehicle admit Independent with ADL's Yes Is patient alert and oriented? Yes Caregiver for Another No Barriers to Discharge No Discharge Plan Home Transportation Arrangement Partner, or mother. Referrals Initiated None needed Whiteboard Updated in Patient Room with Yes name and ext. # of [employer] Review Status In Process Next Review Type Continued Stay Review
[2020-12-08] MEDS: VANCOMYCIN TROUGH 1 REQUEST MISC (12:37)
[2020-12-08] MEDS: cefTRIAXone 2,000 MG in SODIUM CHLORIDE 0.9% 100 ML 200 ML IV (12:37)
[2020-12-08] MEDS: ONDANSETRON 4 MG/2 ML INJ IV (12:40)
--- NOTE | 2020-12-08 14:46 | PC.NURSE ---
A&Ox4. VSS. Pain 7-8/10 in right index finger. Given PRN oxycodone which provides some relief. Had some mild nausea this afternoon and was given PRN zofran which provided relief. Right index finger is swollen with erythema and has a 1cm by 1cm lesion producing scant sanguineous drainage, CHADD. IV Vanco and ceftriaxone infused, patient will be discharging this afternoon after her last dose. Friend laying in bed with her most of this shift. Call light within reach, bed low.
--- NOTE | 2020-12-08 14:48 | P.DS_ITS ---
History of Present Illness History of Present Illness Chief complaint: Infection in finger-progressed quickly Narrative: The patient is a 25-year-old right-handed female who presented to the emergency department with complaints of pain in her right index finger. She reports her symptoms began on Thursday night 2 nights prior to admission. Initially she thought it was related to slamming her finger in the door. However she notes initially a became somewhat tender. Then she woke yesterday with the finger being swollen and painful and inability to move her forefinger. She was seen in urgent care. They started her on Keflex. She took 3 tablets of the prescription but noted her finger became increasingly painful red and tender. She has been unable to move her finger. She has noted some oozing from the knuckle and presented to the emergency room for evaluation. She has had no symptoms of fever chills nausea vomiting or shortness of breath. Her main complaint is pain of the right finger. She was evaluated by Dr. Brooks, orthopedic surgeon in the emergency department. In MRI was done of the finger. This shows no drainable collection of fluid or abscess. It is felt that this is a finger cellulitis without tenosynovitis or abscess involved. The patient will be admitted to the hospital at this time for treatment with antibiotics for finger cellulitis. Discharge Providers Provider Date of admission: 12/07/20 15:06 Discharge Date: 12/08/20 Primary care physician: eDx Redding MD Consults: Dr. Brooks Discharge provider: Samantha Roque MD Summary Hospital Course Discharge Diagnosis: 1. Left index finger cellulitis Hospital Course: Patient was admitted to the hospital for treatment of finger cellulitis. She feels her finger has decreased swelling and increased range of motion. There was no discharge today. I recommended that she continue IV antibiotics for one additional day. Patient was adamant that she needed to leave to care for her dog. We gave her a second dose of VAnco/Ceftriaxone. She will continue the cephalexin prescribed previously. She was instructed to return to the ED if her finger gets worse. She is asked to follow up with her PCP next week. She tolerated the antibiotics without difficulty. Patient will be discharged home today. Status at Discharge Cognitive/behavioral status at discharge: oriented Functional status at discharge: independent ambulation Overall status at discharge: patient is progressing back to baseline Exam Vital Signs (past 8 hours): - 12/08/20 09:32 Temperature 97.5 F L Pulse Rate 58 L Respiratory Rate 16 Blood Pressure 105/49 L Pulse Oximetry 100 Oxygen Delivery Method Room Air Oxygen Flow Rate 0 Narrative Exam Narrative: pleasant female Extrem Other: left hand/fore finger/ swollen/tender/decreased redness/ no exudates increased ability to flex and exted PIP Objective Labs Result Diagrams: 12/08/20 06:02 12/07/20 13:15 Labs: Laboratory Results - last 24 hr 12/07/20 12/08/20 12/08/20 13:44 06:02 06:02 WBC 7.7 RBC 4.44 Hgb 12.2 Hct 37.3 MCV 84.0 MCH 27.5 MCHC 32.7 RDW 15.0 H Plt Count 274 Neut % (Auto) 47.9 L Lymph % (Auto) 39.9 [place] % (Auto) 8.4 Eos % (Auto) 3.1 Baso % (Auto) 0.7 Neut # (Auto) 3700 Lymph # (Auto) 3100 [place] # (Auto) 600 Eos # (Auto) 200 Baso # (Auto) 100 Procalcitonin 0.06 Vancomycin Trough SARS-CoV-2 (PCR) Negative 12/08/20 07:35 WBC RBC Hgb Hct MCV MCH MCHC RDW Plt Count Neut % (Auto) Lymph % (Auto) [place] % (Auto) Eos % (Auto) Baso % (Auto) Neut # (Auto) Lymph # (Auto) [place] # (Auto) Eos # (Auto) Baso # (Auto) Procalcitonin Vancomycin Trough 15.5 SARS-CoV-2 (PCR) [facility] Surgical History History of third molar tooth extraction (2013) Social History household members: none Smoking Status: Former smoker alcohol intake: current substance use type: does not use Discharge Assessment & Plan Assessment and Plan Assessment: 1. finger cellulitis Plan of Treatment: Antibiotics as previously prescribed F/U with PCP next week return to ED if swelling increases, pain increases, or decreased range of motion Discharge Plan Discharge Plan Patient Disposition: Home Discharge orders & Medications Prescriptions: Continued desonide 0.05 % cream 1 applic topical BID Qty: 60 RF: 0 cephalexin 500 mg capsule 500 mg PO QID 10 Days Qty: 40 RF: 0 levonorgestrel [Nina] 14 mcg/24 hour (3 years) intrauterine device 1 device Intrauterine DIRECTED RF: 0 drospirenone-ethinyl estradiol 3-0.02 mg tablet 1 tab PO QAM RF: 0 Follow up/Referrals: Dex Redding MD [Primary Care Provider] - Diet/Activity/Treatments Diet: Diet as Tolerated Skin/Wound/Dressing Care Report to your healthcare provider any signs of infection, such as:: chills, fever, increased pain, unusual drainage and unusual redness Discharge Data Primary Care Provider: Dex Redding
--- NOTE | 2020-12-08 15:54 | PC.NURSE ---
Patient discharged in stable condition at 15:54, taken down to friends car by wheelchair. Discharge instructions reviewed with patient and all questions answered.
== END 2020-12-08 15:54 | disposition home or self-care (01) ==
LOC: ED 12:39 → AC 15:09
PROVIDERS: Admitting Provider Internal Medicine; Emergency Provider Nurse Practitioner Critical Care Medicine; PCP Family Medicine; Referring Provider Nurse Practitioner Critical Care Medicine; Visit Provider Internal Medicine
DX: L03.011 Cellulitis of right finger (principal); W23.1XXA Caught, crushed, jammed, or pinched between stationary objects, initial encounter; Z20.822 Contact with and (suspected) exposure to COVID-19
CPT/HCPCS: 36415; 73090; 73140; 73220; 80053; 80202; 84145; 84702; 85025; 85651; 87070; 87205; 87635; 96365; 96366; 96367; 96375; 99284; C9803; G0378; J0696; J2060; J2405